=== PATIENT | male | born 1990 | race Caucasian/White ===

== ENCOUNTER 2024-09-27 12:08 | Emergency (ER) | payer OTHER ==
[~2024-09-27] VITALS: Ht 160 cm; Wt 68.0 kg
[2024-09-27] MEDS ORDERED: CEPH500 PO (12:30)
== END 2024-09-27 12:31 | disposition home or self-care (01) ==
LOC: ER 12:08
DX: L03.112 Cellulitis of left axilla (principal); Z79.899 Other long term (current) drug therapy
CPT/HCPCS: 99282